=== PATIENT | male | born 1985 | race Caucasian/White ===

== ENCOUNTER → 2020-10-03 | Outpatient (CLI) | payer OTHER | LOC: LAB 11:08 | PROVIDERS: ATTEND Family Medicine | DX: E78.1 Pure hyperglyceridemia (principal) | CPT/HCPCS: 36415 ==

== ENCOUNTER → 2021-10-09 | Outpatient (CLI) | payer OTHER ==
[~2021-10-09] MED LIST: CETI10TA74 PO; DEXAMETHASONE PRES.FREE 10 MG/ML VIAL. ONE; IOHEXOL 180 MG/ML 10 ML VIAL. ONE; OMEP20CA16 PO; TRAM50TA PO; methylPREDNISolone ACETATE 40 MG/ML VIAL. ONE
--- NOTE | 2021-10-09 13:32 | PDOC1 ---
INITIAL PAIN CONSULT DATE OF SERVICE: DOS: DATE: 10/09/21 TIME: 13:25 CHIEF COMPLAINT: Chief Complaint: Neck and left upper extremity pain HISTORY OF PRESENT ILLNESS: 35-year-old male presents history of pain for about 3 months without any specific injury or accident with pain in the base the neck and left shoulder and upper extremity getting worse with time patient reports he woke up 1 morning and the pain was there and began to get worse he does not physical therapy as well as with stretching strength exercises and continues to do so without any significant improvement but is slightly better since that was 3 months ago patient reports only minimally patient reports he been taking tramadol which helps him sleep at night patient reports the pain is in the base the neck and left shoulder posterior scapular region into the posterior deltoid and tricep also some in the bicep and in the forearm and hand with numbness and tingling in all the fingers patient reports constant sharp stabbing in the neck throbbing and shooting in the arm changes during the day with activity tingling and numbness in the hand as well radiating from the shoulder into the arm cramping and aching in the neck as well. Patient rates his disability rating 0-10 10 being the worst is a 5 with a home responsibilities 7 with recreation for social activity 6 occupation 1 with sexual behavior self-care and life support activities. Patient did have an MRI scan of the cervical spine which we reviewed with him today as well showing C6-7 small disc bulge with no canal narrowing with uncovertebral and facet arthropathy with left foraminal disc protrusion moderate left and mild right neuroforaminal narrowing also small disc bulge at C5-6 and small disc bulge at C4-5. Patient reports no loss of motor function but significant fatigability of the left upper extremity with fine motor movements as well as larger motor movement such as twisting a lid off of a jar and lifting items repetitively with the left hand. Patient has been working out about 3 times a week but had to decrease this significantly because of the pain in his left hand and forearm. PAST MEDICAL HISTORY: PMH: Gastroesophageal reflux PREVIOUS SURGERIES: Past Surgical Hx: Cholecystectomy, tonsillectomy CURRENT MEDICATIONS: Current Meds: Active Scripts Medications Dose Route/Sig Max Daily Dose Days Date Category Tramadol Hcl 50 Mg Tablet 50 Mg PO DAILY PRN 10/09/21 Reported Zyrtec (Cetirizine Hcl) 10 Mg Tablet 1 Tab PO DAILY 10/09/21 Reported Tramadol Hcl 50 Mg Tablet 50 Mg PO DAILY PRN 10/09/21 Reported ALLERGIES; Allergies: Coded Allergies: Penicillins (Verified Allergy, Intermediate, rash, 10/09/21) FAMILY HISTORY: Family Hx: Heart disease SOCIAL HISTORY: Social Hx: Patient drinks very rarely about 1 alcoholic drink a week does not smoke says any illegal illicit or recreational drugs is lives with his spouse has 1 child living at home 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 REVIEW OF SYSTEMS: ROS: Positive for those items mentioned in history of present illness, all systems are reviewed, otherwise negative ,and are complete full and well-documented on patient's chart. PHYSICAL EXAM: VS: Blood pressure is 152/89 pulse 91 respiration 16 temperature is 98.5 F height is 5 feet 10 inches weight is 239 pounds. PE: PHYSICAL EXAMINATION: GENERAL: The patient is awake, alert, oriented, appropriate, very pleasant in demeanor HEENT: Shows normocephalic, atraumatic. Extraocular movements are intact and symmetrical. Full gao and mustache oral cavity: Mucous membranes moist and pink. Dentition is intact. NECK: Shows anterior throat supple without palpable lymphadenopathy noted. Swallow reflex symmetrical. CHEST: Shows normal on inspection. Breath sounds are clear bilaterally, no rales rhonchi or wheezes auscultated. HEART: Shows S1, S2 clear. No murmurs auscultated. ABDOMEN: Soft, nontender, nondistended. No palpable organomegaly is noted. BACK: Shows spine grossly in the midline. Normal-appearing cervical lordotic curvature. Cervical paraspinous muscles show symmetrical inspection, palpation some moderate tenderness diffusely in the inferior aspect of the cervical paraspinous muscular only on the left without asymmetry without atrophy hypertrophy without trigger points. Patient shows full rotation motion cervical spine with some mild tenderness with left lateral rotation as well as with extension but not with forward flexion or right lateral rotation. There is slightly increased thoracic kyphosis, some minor flattening of the lumbar lordotic curvature. EXTREMITIES: Upper extremities show deep tendon reflexes 2+ in the biceps and triceps tendons. Motor exam is 5 on a scale of 5 with right cardiovascular lab director, biceps and triceps flexion and 4/5 on the left. Peripheral pulses are 2+ radial. No peripheral edema is noted bilaterally. Upper extremities are warm and dry to touch, equal in color and appearance. Shoulder shrug strong and intact without loss strength on resistance as is abduction of the shoulders 90 degrees without loss strength or resistance bilaterally. SKIN: Shows warm and dry, good turgor. No edema. No sores, rashes or bruising throughout. IMPRESSION: Impression: 35-year-old male with approximate 3-month history of pain base of the neck left upper extremity radicular fashion. MRI scan cervical spine as noted. Gastroesophageal reflux. Plan: Options were discussed with patient occluding conservative measures physical therapies and medical techniques. Patient like to pursue interventional techniques. We discussed a cervical epidural steroid injection using descriptions as well as anatomical models to describe the procedure. Risks were discussed including but not limited to: Bleeding, infection, possibility of epidural hematoma and subsequent neurological compromise, dural puncture, headaches, spinal cord and/or nerve damage, side effects of steroid medication, and poor results regarding pain control. Patient understands and wished to proceed. Patient will return to the clinic in approximately 2 weeks for follow-up, was counseled as to return appointment, activity level, and side effects. Procedure cervical epidural steroid injection at the C6-7 level, using local anesthetic under sterile prep and drape using C-arm fluoroscopic guidance under local anesthesia medications injected ; 120 mg methylprednisolone +5 mL normal saline and 2 mL contrast; condition at discharge is stable patient tolerated procedure well. and had no complications JACOBY PRYOR MD Oct 09, 2021 13:32
--- NOTE | 2021-10-09 13:33 | PDOC4 ---
Procedure Note: ICD 10 Code: ICD 10 Code: M54.12 M50.30 M48.02 Procedure Note: Patient was consented for cervical epidural steroid injection with fluoroscopic guidance. Risks were discussed including but not limited to: Bleeding, infection, possibility of epidural hematoma and subsequent neurological compromise, dural puncture, headaches, spinal cord and/or nerve damage, side effects of steroid medication, and poor results regarding pain control. Patient understands and wished to proceed. Procedure cervical epidural steroid injection at the C6-7 level, using local a nesthetic under sterile prep and drape using C-arm fluoroscopic guidance under local anesthesia medications injected ; 120 mg methylprednisolone +5 mL normal saline and 2 mL contrast; condition at discharge is stable patient tolerated procedure well. and had no complications JACOBY PRYOR MD Oct 09, 2021 13:33
== END | disposition home or self-care (01) ==
LOC: PNCL 11:35
PROVIDERS: ATTEND Anesthesiology
DX: M50.10 Cervical disc disorder with radiculopathy, unspecified cervical region (principal); M54.12 Radiculopathy, cervical region; M48.02 Spinal stenosis, cervical region; Z79.899 Other long term (current) drug therapy; Z88.0 Allergy status to penicillin
CPT/HCPCS: 62321; J1030; J1100; Q9965

== ENCOUNTER → 2021-10-23 | Outpatient (CLI) | payer OTHER ==
[~2021-10-23] MED LIST changes: -methylPREDNISolone ACETATE 40 MG/ML VIAL. ONE
--- NOTE | 2021-10-23 13:03 | PDOC ---
Progress Note - Pain Clinic Date of Service: DOS: DATE: 10/23/21 TIME: 13:00 Diagnosis: Dx: Cervical radiculopathy with cervical degenerative disc disease and cervical spinal stenosis History or Present Illness: HPI: 36-year-old male returns for follow-up status post cervical epidural steroid injection x1. Patient reports about 60% improvement of the pain in the neck and left upper extremity patient reports he is increase his activity to greater ease and comfort working better household activities performed better as well as traveling better sleeping better at night patient reports still some pain in the base the neck and left shoulder and arm as well as the hand but much improved patient reports is a 5 out of 10 is worse over the past week for an average 2 to [place] is a [address] aching and tight can be shooting tingling and stabbing radiating sometimes constant with activity but again it significantly improved after last visit. Patient reports he is able to use his left hand with much greater confidence and strength and less fatigue in the arm and the hand. Patient reports no new motor or sensory deficits. Physical Exam: VS: Blood pressure is 129/90 pulse 77 respirations are 18 temperature is 98.3 F height is 5 foot 10 inches weight is 240 pounds. PE: PHYSICAL EXAMINATION: GENERAL: The patient is awake, alert, oriented, appropriate, very pleasant in demeanor HEENT: Shows normocephalic, atraumatic. Extraocular movements are intact and symmetrical. Oral cavity: Mucous membranes moist and pink. Dentition is intact. NECK: Shows anterior throat supple without palpable lymphadenopathy noted. Swallow reflex symmetrical. CHEST: Shows normal on inspection. Breath sounds are clear bilaterally. HEART: Shows S1, S2 clear. No murmurs auscultated. ABDOMEN: Soft, nontender, nondistended. No palpable organomegaly is noted. No rebound or guarding demonstrated. BACK: Shows spine grossly in the midline. Normal-appearing cervical lordotic curvature. Cervical paraspinous muscles show symmetrical with inspection, on palpation some moderate tenderness diffusely in the inferior aspect cervical paraspinous posterior on the left side also into the superior medial trapezius but only diffusely without trigger points without atrophy hypertrophy. Patient shows full rotation of motion cervical spine both laterally as well as full extension full flexion without significant difficulty or pain reported. There is slightly increased thoracic kyphosis, some minor flattening of the lumbar lordotic curvature. EXTREMITIES: Upper extremities show deep tendon reflexes 2+ in the patellar and tendo calcaneus tendons. Motor exam is 5 on a scale of 5 with right dorsiflexion, extension, quadriceps and hamstring flexion and 4/5 on the left. Peripheral pulses are 2+ posterior tibial. No peripheral edema is noted bilaterally. Upper extremities are warm and dry to touch, equal in color and appearance. Shoulder shrug strong intact without loss strength on resistance as is abduction of the shoulders 90 degrees without loss strength on resistance bilaterally. SKIN: Shows warm and dry, good turgor. No edema. No sores, rashes or bruising throughout. Procedure: Procedure: Options were discussed with the patient. Patient's old chart was viewed as his current medication regimen updated current review of systems updated today as well. We will proceed with a cervical epidural steroid injection today with fluoroscopic guidance. Risks were discussed including but not limited to: Bleeding, infection, possibility of epidural hematoma and subsequent neurological compromise, dural puncture, headaches, spinal cord and/or nerve damage, side effects of steroid medication, and poor results regarding pain control. Patient understands and wished to proceed. Patient will return to the clinic in approximately 2 weeks for follow-up, was counseled as to return appointment, activity level, and side effects to be aware of. Medication Injected: Med Injected: Procedure cervical epidural steroid injection at the C6-7 level, using local anesthetic under sterile prep and drape using C-arm fluoroscopic guidance under local anesthesia medications injected ; 20 mg dexamethasone +5 mL normal saline and 2 mL contrast; condition at discharge is stable patient tolerated procedure well. and had no complications Condition at Discharge: Condition at Discharge: Condition at discharge stable, paced tolerated procedure well and had no complications. JACOBY PRYOR MD Oct 23, 2021 13:03
--- NOTE | 2021-10-23 13:04 | PDOC4 ---
Procedure Note: ICD 10 Code: ICD 10 Code: M54.12 M50.30 M48.02 Procedure Note: Patient was consented for cervical epidural steroid injection with fluoroscopic guidance. Risks were discussed including but not limited to: Bleeding, infection, possibility of epidural hematoma and subsequent neurological compromise, dural puncture, headaches, spinal cord and/or nerve damage, side effects of steroid medication, and poor results regarding pain control. Patient understands and wished to proceed. Procedure cervical epidural steroid injection at the C6-7 level, using local a nesthetic under sterile prep and drape using C-arm fluoroscopic guidance under local anesthesia medications injected ; 20 mg dexamethasone +5 mL normal saline and 2 mL contrast; condition at discharge is stable patient tolerated procedure well. and had no complications JACOBY PRYOR MD Oct 23, 2021 13:04
== END | disposition home or self-care (01) ==
LOC: PNCL 11:28
PROVIDERS: ATTEND Anesthesiology
DX: M50.10 Cervical disc disorder with radiculopathy, unspecified cervical region (principal); M48.02 Spinal stenosis, cervical region; M54.12 Radiculopathy, cervical region; Z79.899 Other long term (current) drug therapy; Z88.0 Allergy status to penicillin
CPT/HCPCS: 62321; J1100; Q9965

== ENCOUNTER → 2021-11-05 | Outpatient (CLI) | payer OTHER ==
--- NOTE | 2021-11-05 16:23 | PDOC ---
Progress Note - Pain Clinic Date of Service: DOS: DATE: 11/05/21 TIME: 16:19 Diagnosis: Dx: Cervical radiculopathy with cervical degenerative disease and cervical spinal stenosis History or Present Illness: HPI: 36-year-old male returns for follow-up status post cervical epidural steroid injection x2. Patient reports about 75% improvement after 2weeks with pain still in the base the neck and left upper extremity much improved but still significant in the base the neck shoulder on the left side rating the left arm into the forearm especially in the medial aspect and into the fourth and fifth fingers patient reports is dull and aching in the neck tight and shooting in the arm tingling burning stabbing radiating sensation with repetitive motion and weight lifting with the left arm and reaching over his head with his left hand. Patient reports it wakes him from sleep about every 6-8 hours specially lays on his left side patient rates pain as a 7 on scale 10 is worst 5 on average to its least and is a 5 today. Patient reports no loss of function but some fatigability with repetitive motion and weight lifting with the left arm. Physical Exam: VS: Blood pressure is 143/96 pulse 75 respirations 18 temperature 98.4 F weight is 243 pounds. PE: PHYSICAL EXAMINATION: GENERAL: The patient is awake, alert, oriented, appropriate, very pleasant in demeanor HEENT: Shows normocephalic, atraumatic. Extraocular movements are intact and symmetrical. Oral cavity: Mucous membranes moist and pink. Dentition is intact. NECK: Shows anterior throat supple without palpable lymphadenopathy noted. Swallow reflex symmetrical. CHEST: Shows normal on inspection. Breath sounds are clear bilaterally. HEART: Shows S1, S2 clear. No murmurs auscultated. ABDOMEN: Soft, nontender, nondistended. No palpable organomegaly is noted BACK: Shows spine grossly in the midline. Normal-appearing cervical lordotic curvature. Cervical paraspinous muscles show symmetrical inspection, palpation some moderate tenderness diffusely in the inferior aspect of the cervical paraspinous musculature on the left as well as into the superior medial trapezius but without trigger points without atrophy or hypertrophy. Patient shows full rotation motion cervical spine with lateral as well as extension flexion without significant difficulty. There is slightly increased thoracic kyphosis, some minor flattening of the lumbar lordotic curvature. EXTREMITIES: Upper extremities show deep tendon reflexes 2+ in the biceps and triceps tendons. Motor exam is 5 on a scale of 5 with right linen room attendant, biceps and tricep flexion and 4/5 on the left. Peripheral pulses are 2+ radial. No peripheral edema is noted bilaterally. Upper extremities are warm and dry to touch, equal in color and appearance. SKIN: Shows warm and dry, good turgor. No edema. No sores, rashes or bruising throughout. Procedure: Procedure: Options were discussed with the patient. Patient's old chart was reviewed his current medication regimen updated current review of systems updated today as well. We will proceed with a cervical epidural steroid injection today with fluoroscopic guidance. Risks were discussed including but not limited to: Bleeding, infection, possibility of epidural hematoma and subsequent neurological compromise, dural puncture, headaches, spinal cord and/or nerve damage, side effects of steroid medication, and poor results regarding pain control. Patient understands and wished to proceed. Patient return to clinic in approximately 2 weeks for follow-up, was counseled as to return appointment, activity level, and side effect to be aware of. Medication Injected: Med Injected: Procedure cervical epidural steroid injection at the C6-7 level, using local anesthetic under sterile prep and drape using C-arm fluoroscopic guidance under local anesthesia medications injected ; 20 mg dexamethasone +5 mL normal saline and 2 mL contrast; condition at discharge is stable patient tolerated procedure well. and had no complications Condition at Discharge: Condition at Discharge: Condition at discharge stable, patient tolerated procedure well and had no complications. JACOBY PRYOR MD November 05, 2021 16:23
--- NOTE | 2021-11-05 16:24 | PDOC4 ---
Procedure Note: ICD 10 Code: ICD 10 Code: M54.12 M50.30 M48.02 Procedure Note: Patient was consented for cervical epidural steroid injection with fluoroscopic guidance. Risks were discussed including but not limited to: Bleeding, infection, possibility of epidural hematoma and subsequent neurological compromise, dural puncture, headaches, spinal cord and/or nerve damage, side effects of steroid medication, and poor results regarding pain control. Patient understands and wished to proceed. Procedure cervical epidural steroid injection at the C6-7 level, using local a nesthetic under sterile prep and drape using C-arm fluoroscopic guidance under local anesthesia medications injected ; 20 mg dexamethasone +5 mL normal saline and 2 mL contrast; condition at discharge is stable patient tolerated procedure well. and had no complications JACOBY PRYOR MD November 05, 2021 16:24
== END | disposition home or self-care (01) ==
LOC: PNCL 14:51
PROVIDERS: ATTEND Anesthesiology
DX: M50.10 Cervical disc disorder with radiculopathy, unspecified cervical region (principal); M48.02 Spinal stenosis, cervical region; M54.12 Radiculopathy, cervical region; Z79.899 Other long term (current) drug therapy; Z88.0 Allergy status to penicillin
CPT/HCPCS: 62321; J1100; Q9965; 62323